=== PATIENT | female | born 1955 | race Caucasian/White ===

== ENCOUNTER → 2025-07-14 | Outpatient (CLI) | payer MEDICARE ==
--- NOTE | 2025-07-14 18:19 | HMCIMG ---
EXAM: MR Lumbar Spine Without Intravenous Contrast. CLINICAL HISTORY: Lumbago with right-sided sciatica. TECHNIQUE: Magnetic resonance images of the lumbar spine in multiple planes. CONTRAST: None. COMPARISON: None. FINDINGS: For this examination, spinal levels were labeled assuming five non-rib bearing, lumbar-type vertebrae with the inferior labeled L5. No acute fracture. Mild levoscoliosis. Mild degenerative anterolisthesis of T11 or T12. Mild degenerative retrolisthesis of L2 over L3. Multilevel spondylosis is evident by marginal osteophytes and facet joint arthropathy. Multilevel disc desiccation noted. Mild degenerative disc height reduction at the T11-T12 and L4-L5 levels. Normal vertebral body and remaining disc heights. Modic type I changes in the contiguous endplates at the T11-T12, L2-L3, L3-L4, and L4-L5 levels. Conus medullaris terminates at the T12-L1 level. No abnormal epidural masses. Small, perineural cysts at the S2 and S3 levels. Mild atrophy of the posterior paraspinal muscles. Individual spinal levels are described as follows: T11-T12: 2 mm anterolisthesis of T11 over T12 with uncovering of the posterior disc causing mild indentation on the anterior thecal sac. No neural foraminal or lateral recess stenosis. T12-L1: No disc bulge or herniation. No neural foraminal, lateral recess or spinal canal stenosis. L1-L2: No disc bulge or herniation. No neural foraminal, lateral recess or spinal canal stenosis. L2-L3: Mild retrolisthesis of L2 over L3 with 4 mm disc osteophyte complex bulge causing mild indentation on the anterior thecal sac. No neural foraminal or lateral recess stenosis. L3-L4: 2 mm disc osteophyte complex bulge causing mild indentation on the anterior thecal sac. No neural foraminal or lateral recess stenosis. L4-L5: 5 mm disc osteophyte complex bulge causing mild indentation on the anterior thecal sac. No neural foraminal or lateral recess stenosis s. L5-S1: 3 mm disc osteophyte complex bulge causing mild indentation on the anterior thecal sac. No neural foraminal or lateral recess stenosis. IMPRESSION: Mild levoscoliosis. Mild degenerative anterolisthesis of T11 or T12. Mild degenerative retrolisthesis of L2 over L3. Mild multilevel spondylosis. Mild degenerative disc height reduction at the T11-T12 and L4-L5 levels. Modic type I changes in the contiguous endplates at the T11-T12, L2-L3, L3-L4, and L4-L5 levels. Mild indentation on the anterior thecal sac at the T11-T12, L2-L3, L3-L4, L4-L5, and L5-S1 levels. /[place]
== END | disposition home or self-care (01) ==
LOC: RAH 07:54
PROVIDERS: ATTEND Physician Assistant Medical
DX: M47.816 Spondylosis without myelopathy or radiculopathy, lumbar region (principal); M43.14 Spondylolisthesis, thoracic region; M43.16 Spondylolisthesis, lumbar region; M41.86 Other forms of scoliosis, lumbar region; M51.360 Other intervertebral disc degeneration, lumbar region with discogenic back pain only; M51.379 Other intervertebral disc degeneration, lumbosacral region without mention of lumbar back pain or lower extremity pain; M25.78 Osteophyte, vertebrae; G12.8 Other spinal muscular atrophies and related syndromes; M54.41 Lumbago with sciatica, right side; G89.29 Other chronic pain
CPT/HCPCS: 72148